=== PATIENT | male | born 1995 | race Caucasian/White ===

== ENCOUNTER 2023-02-15 13:02 | Emergency (ER) | payer OTHER ==
[~2023-02-15] VITALS: Ht 177.8 cm; Wt 108.9 kg
[~2023-02-15 13:02] MED LIST: OXYACE5T PO
[2023-02-15] MEDS ORDERED: IBUP800 PO ×2 (16:11→16:28)
[2023-02-15] MEDS ORDERED: OXAYDO5 M1 PO ×2 (16:11→16:28)
[2023-02-15 16:30] VITALS: BP 135/96
== END 2023-02-15 16:40 | disposition home or self-care (01) ==
LOC: ER 13:02
DX: S22.051A Stable burst fracture of T5-T6 vertebra, initial encounter for closed fracture (principal); S01.01XA Laceration without foreign body of scalp, initial encounter; V49.9XXA Car occupant (driver) (passenger) injured in unspecified traffic accident, initial encounter
CPT/HCPCS: 12001; 70450; 72128; 90471; 90715; 99284-25; A9270